=== PATIENT | female | born 1965 | race Two or more races ===

== ENCOUNTER → 2020-07-01 | Outpatient (CLI) | payer OTHER ==
[~2020-07-01] MED LIST: DETR4CAP; SEPT400T; THERGRAN
== END ==
LOC: M LABSMTC 14:05
PROVIDERS: ATTEND Pediatrics
DX: Z20.828 Contact with and (suspected) exposure to other viral communicable diseases (principal)

== ENCOUNTER → 2022-09-11 | Outpatient (CLI) | payer OTHER | LOC: M RAD 09:53 | PROVIDERS: ATTEND Family Medicine | DX: Z12.2 Encounter for screening for malignant neoplasm of respiratory organs (principal); F17.210 Nicotine dependence, cigarettes, uncomplicated ==

== ENCOUNTER → 2022-10-23 | Outpatient (CLI) | payer OTHER | LOC: M SLEEP HO 10:33 | PROVIDERS: ATTEND Family Medicine | DX: R06.83 Snoring (principal); R53.83 Other fatigue ==

== ENCOUNTER 2024-04-13 11:21 | Day surgery (SDC) | payer OTHER ==
[~2024-04-13] VITALS: Ht 170.2 cm; Wt 83.7 kg
[~2024-04-13 11:21] MED LIST changes: +CLAR10CA3 PO; +FISH1CAP26 FT; +OMEP40CA4 PO; +THERTAB52 PO; +TRAZ-252 PO; +VITA-158 PO
[2024-04-13] MEDS: NS 1,000 ML IV ONE (11:32)
[2024-04-13] MEDS ORDERED: propofoL 200 MG/20 ML VIAL As Ordered ONE (12:46)
[2024-04-13] MEDS ORDERED: fentaNYL 100 MCG/2 ML INJECTION As Ordered ONE (12:46)
[2024-04-13] MEDS ORDERED: LIDOCAINE 2% 100MG/5ML SDV (FOR ANES.) As Ordered ONE (12:46)
[2024-04-13 13:26] VITALS: BP 135/67; O2SAT 97
== END 2024-04-13 13:34 | disposition home or self-care (01) ==
LOC: M OPP 11:21
PROVIDERS: ATTEND Internal Medicine Gastroenterology
DX: K22.70 Barrett's esophagus without dysplasia (principal); R12 Heartburn; Z88.0 Allergy status to penicillin; F17.220 Nicotine dependence, chewing tobacco, uncomplicated; F10.10 Alcohol abuse, uncomplicated; Z79.899 Other long term (current) drug therapy
CPT/HCPCS: 43239; 88305; J3010

== ENCOUNTER → 2025-04-20 | Outpatient (REF) | payer OTHER | LOC: M LAB REF 11:19 | PROVIDERS: ATTEND Ophthalmology | DX: H02.825 Cysts of left lower eyelid (principal) ==